=== PATIENT | female | born 1970 | race Two or more races ===

== ENCOUNTER 2024-12-28 14:10 | Outpatient (RCR) | payer MEDICAID, SELFPAY ==
--- NOTE | 2024-12-28 14:37 | PTNOTE_ITS ---
PT OP Initial Eval Patient Information Outpatient Physical Therapy Treatment Date: 12/28/24 Visit Reasons: Pain in left shoulder Medical Diagnosis: M25.512 Start of Care: 12/28/24 Date of Onset: 3 months ago Smoking Status Smoking Status: Never smoker Initial Assessment Subjective: Pt is 54 yr old liberian speaking female who fell with L shoulder pain and wrist pain. Increased pain with dressing and donning bra, sleeping on the L side, and reaching up. This limits HH chore tolerance. PMH: HTN Imaging: Xrays with provider Pt goal: to get rid of the pain to reach higher Objective: L shoulder ArOM: FF: 89 deg Abd: 90 deg ER: 90 deg HBB: unable Strength: 3-/5 [place]: positive Drop arm: positive Assessment: Pt presents with high pain level of L shoulder that limits ROM, strength and function consistent with RC tear. Pt not likely going to benefit from therapy or meet goals and will likely have more pain after therapy visits. PT recommends further diagnostic imaging of L shoulder such as MRI. Short Term and Retirement Goals Eval and D/C Treatment Plan Eval and D/C Certification Dates: 12/28/24 to 01/27/25 Procedure Charges OP PT Eval Mod Complex 30 minutes: Yes
== END 2025-01-23 23:59 | disposition home or self-care (01) ==
LOC: CPTX 14:10
PROVIDERS: PCP Family Medicine; Referring Provider Family Medicine; Visit Provider Family Medicine
DX: M25.512 Pain in left shoulder (principal); M25.539 Pain in unspecified wrist; I10 Essential (primary) hypertension
CPT/HCPCS: 97162